=== PATIENT | female | born 1970 | race Two or more races ===

== ENCOUNTER 2018-01-11 17:01 | Emergency (ER) | payer BC ==
[~2018-01-11] VITALS: Ht 154.9 cm; Wt 75.5 kg
[2018-01-11 17:54] LABS: BASOPHILS # (AUTO) 0.01 x10^3/uL (0-0.1); BASOPHILS % (AUTO) 0 % (0-1); EOSINOPHILS # (AUTO) 0.06 x10^3/uL (0-0.4); EOSINOPHILS % (AUTO) 1 % (1-7); LYMPHOCYTES % (AUTO) 21 % (22-44); MD NO; MEAN CORPUSCULAR HEMOGLOBIN 29.1 pg (27.0-34.8); MEAN CORPUSCULAR HGB CONC 33.9 g/dL (32.4-35.8); MEAN CORPUSCULAR VOLUME 86.1 fL (80-100); MEAN PLATELET VOLUME 9.7 fL (7.4-10.4); MONOCYTES # (AUTO) 0.62 x10^3/uL (0.2-0.8); MONOCYTES % (AUTO) 8 % (2-9); NEUTROPHILS # (AUTO) 5.39 x10^3/uL (1.8-6.8); NEUTROPHILS % (AUTO) 70 % (42-75); PLATELET COUNT 194 x10^3/uL (130-400); RED BLOOD COUNT 4.78 x10^6/uL (3.82-5.3); RED CELL DISTRIBUTION WIDTH 13.4 % (9.6-15.2)
[2018-01-11] MEDS ORDERED: SODIUM CHLORIDE 0.9% 1,000ML IVBOLUS ONE (18:00)
[2018-01-11 18:02] LABS: RAPID INFLUENZA A Negative (Negative); RAPID INFLUENZA B Negative (Negative)
[2018-01-11 18:05] LABS: ALBUMIN 3.8 g/dL (3.4-5.0); ANION GAP 8 mmol/L (5-15); CALCIUM 8.4 mg/dL (8.5-10.1); CHLORIDE 106 mmol/L (98-107)
[2018-01-11] MEDS ORDERED: SODIUM CHLORIDE FLUSH 10ML SYR IVF ONE (18:30)
[2018-01-11 20:08] LABS: MICROSCOPIC NOT IND
[2018-01-11] MEDS ORDERED: IBUPROFEN 200 MG TABLET ONE (20:10)
[2018-01-11 20:12] LABS: CULTURE INDICATED? NO
[2018-01-11] MEDS ORDERED: POTASSIUM CHLORIDE 20 MEQ TAB.ER.PRT PO ONE (20:30)
[2018-01-11] MEDS ORDERED: IBUPROFEN 200 MG TABLET PO ONE (20:30)
[2018-01-11] MEDS ORDERED: POTASSIUM CHLORIDE 20 MEQ TAB.ER.PRT ONE (20:40)
[2018-01-11 20:56] VITALS: BP 138/84
== END 2018-01-11 21:12 | disposition home or self-care (01) ==
LOC: ED 20:49
DX: B34.9 Viral infection, unspecified (principal); E87.6 Hypokalemia
CPT/HCPCS: 36415; 71046; 80048; 81003; 82040; 85025; 87400; 93005; 99285